=== PATIENT | male | born 2000 | race Caucasian/White ===

== ENCOUNTER 2019-07-30 09:10 | Emergency (ER) | payer OTHER ==
[2019-07-30 10:10] LABS: Bilirubin Negative (Negative); Blood, Urine Negative (Negative); Clarity Clear (Clear); Glucose, Urine (Dipstick) Normal (Negative); Leukocyte Negative Leu/uL (Negative); Nitrite Negative (Negative); Protein, Urine (Dipstick) Negative (Neg-Trace); Urobilinogen Normal mg/dL (Less than 2)
--- NOTE | 2019-07-30 11:48 | ULT ---
BILATERAL TESTICULAR ULTRASOUND WITH GRAYSCALE COLORFLOW AND SPECTRAL DOPPLER IMAGING: HISTORY: Pain in the penis for one day. FINDINGS: The right testis measures 3 x 3.9 x 2.1 cm and the left testis measures 3.1 x 4.2 x 2.1 cm. No focal testicular mass or microlithiasis is seen. The epididymides have a normal appearance. No hydroceles a re seen. Flow is demonstrated to both epididymides. There are tubular vascular structures in the left inguinal canal with increased flow during Valsalva. IMPRESSION: 1. No evidence of testicular mass, torsion or epididymal orchitis. 2. Findings suggestive of a varicocele in the left inguinal canal. POS: [facility]
== END 2019-07-30 12:30 | disposition home or self-care (01) ==
LOC: ERS 09:10
DX: S39.94XA Unspecified injury of external genitals, initial encounter (principal); X58.XXXA Exposure to other specified factors, initial encounter
CPT/HCPCS: 76870; 81003; 93976